=== PATIENT | female | born 1995 | race Two or more races ===

== ENCOUNTER 2016-04-06 22:33 | Emergency (ER) | payer MEDICAID ==
[~2016-04-06] VITALS: Ht 157.5 cm; Wt 49.9 kg
[2016-04-06] MEDS ORDERED: TdaP Vaccine 0.5ml Syr IM ONE ×2 (23:20→23:30)
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
[2016-04-07 00:15] VITALS: BP 112/70
[2016-04-07 00:17] VITALS: BP 112/70
--- NOTE | 2016-04-07 10:00 | Diagnostic Imaging Report ---
Indication: Head trauma Technique: Contiguous 5 mm thick transaxial imaging of the head obtained in a Siem[employer] Sensation [address] scanner. Soft tissue and bone windows generated. Total Dose length Product (DLP): [address] Dose Index Volume (CTDIvol): 70.38 mGy Comparison: none Findings: The size and configuration of the cortical sulci, basal cisterns, and ventricles are within normal limits for age. There is no mass effect, midline shift, or edema identified. There is no evidence of acute hemorrhage or abnormal intra-axial or extra-axial fluid collections. The bones and soft tissues are unremarkable. Impression: No mass effect, edema or acute bleed. The CT scanner at [facility] is accredited by the [employer] and the scans are performed using protocols designed to limit radiation exposure to as low as reasonably achievable to attain images of sufficient resolution adequate for diagnostic evaluation.
== END 2016-04-07 00:21 | disposition home or self-care (01) ==
LOC: EMR 23:16
DX: S09.90XA Unspecified injury of head, initial encounter (principal); S01.81XA Laceration without foreign body of other part of head, initial encounter; W22.8XXA Striking against or struck by other objects, initial encounter; Y93.9 Activity, unspecified; Y92.9 Unspecified place or not applicable; Z23 Encounter for immunization
CPT/HCPCS: 12013; 70450; 90471; 90715; 99284; Z7502